=== PATIENT | male | born 1990 | race Caucasian/White ===

== ENCOUNTER 2022-10-30 18:29 | Emergency (ER) | payer SELFPAY ==
[~2022-10-30] VITALS: Ht 170.2 cm; Wt 65.8 kg
[2022-10-30] MEDS ORDERED: DOXYCYCLINE HY100 MG PO (19:17)
[2022-10-30 19:50] VITALS: BP 147/88
== END 2022-10-30 19:50 | disposition home or self-care (01) ==
LOC: ED 18:29
DX: Z20.2 Contact with and (suspected) exposure to infections with a predominantly sexual mode of transmission (principal); Z88.0 Allergy status to penicillin
CPT/HCPCS: 96372; 99283; J0696